=== PATIENT | male | born 1965 | race Two or more races ===

== ENCOUNTER 2024-02-28 08:58 | Outpatient (AMB) | payer OTHER, SELFPAY ==
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
[2024-02-28 09:15] VITALS: BP 120/80; PULSE 68; TEMP 36.6; O2SAT 98; BMI 36.6
== END 2024-02-28 09:58 | disposition home or self-care (01) ==
PROVIDERS: Visit Provider Physician Assistant
DX: S93.492A Sprain of other ligament of left ankle, initial encounter (principal); S82.892A Other fracture of left lower leg, initial encounter for closed fracture; W10.8XXA Fall (on) (from) other stairs and steps, initial encounter; Z04.2 Encounter for examination and observation following work accident
CPT/HCPCS: 99203

== ENCOUNTER 2024-02-28 09:24 | Outpatient (REF) | payer OTHER, SELFPAY ==
--- NOTE | ~2024-02-28 | XR_ITS ---
EXAMINATION: XR ANKLE, LEFT CLINICAL INFORMATION: Sprain and pain COMPARISON: None available. TECHNIQUE: AP, lateral, and mortise views of the left ankle. FINDINGS: There is moderate lateral soft tissue swelling. This could imply a lateral ligament injury. Very subtle lucency is seen through the distal fibula on one view only but this may reflect overlapping tissue rather than a fracture. There is minor fragmentation about the medial malleolus. The mortise is intact. There is a prominent spur off the dorsal aspect of the talus. There is a small plantar spur and a small spur along the posterior margin of the calcaneus. XR/XR ankle LT min 3V IMPRESSION: Lateral soft tissue swelling likely implies injury to the lateral collateral ligament or peroneal tendons. Other comments as above.
== END 2024-02-28 09:25 | disposition home or self-care (01) ==
LOC: HO.HMGCX 09:24
PROVIDERS: Visit Provider Physician Assistant
DX: S93.402D Sprain of unspecified ligament of left ankle, subsequent encounter (principal)
CPT/HCPCS: 73610